=== PATIENT | male | born 1980 | race African-American/Black ===

== ENCOUNTER 2016-05-26 16:29 | Emergency (ER) | payer MEDICAID ==
[~2016-05-26] VITALS: Ht 198.1 cm; Wt 125.2 kg
[2016-05-26 16:37] VITALS: BP 132/92
== END 2016-05-26 17:22 | disposition home or self-care (01) ==
LOC: ER 16:29
DX: S02.609G Fracture of mandible, unspecified, subsequent encounter for fracture with delayed healing (principal); Z76.0 Encounter for issue of repeat prescription

== ENCOUNTER 2016-09-05 10:39 | Emergency (ER) | payer SELFPAY ==
[~2016-09-05] VITALS: Ht 198.1 cm; Wt 122.5 kg
[2016-09-05 10:47] VITALS: BP 122/85
== END 2016-09-05 15:35 | disposition left against medical advice (07) ==
LOC: ER 10:41
DX: R51 Headache (principal); R22.0 Localized swelling, mass and lump, head; Z53.21 Procedure and treatment not carried out due to patient leaving prior to being seen by health care provider

== ENCOUNTER 2017-08-07 19:47 | Emergency (ER) | payer MEDICAID ==
[~2017-08-07] VITALS: Ht 198.1 cm; Wt 124.7 kg
[2017-08-07 20:04] VITALS: BP 135/89
== END 2017-08-07 23:27 | disposition left against medical advice (07) ==
LOC: ER 19:47
DX: M54.5 Low back pain (principal); Z53.21 Procedure and treatment not carried out due to patient leaving prior to being seen by health care provider